=== PATIENT | female | born 1945 | race African-American/Black ===

== ENCOUNTER 2020-05-14 10:46 | Outpatient (CLI) | payer MEDICARE, SELFPAY ==
--- NOTE | ~2020-05-14 | XR_ITS ---
XR knee RT 3V DATE: 05/14/2020 11:36 INDICATION: Systemic lupus atheromatosis TECHNIQUE: [place], AP and lateral views COMPARISON: None FINDINGS: There is periarticular spurring at the patellofemoral joint consistent with osteoarthritis. Superior pole patellar enthesopathy at the quadriceps tendon insertion. Mild diffuse osteopenia. No fracture or dislocation, periosteal reaction or bone destruction. Medial and lateral compartment j oint spaces are relatively preserved. No radiopaque intra-articular loose body or chondrocalcinosis. No joint effusion is evident. IMPRESSION: Osteoarthritis at the patellofemoral joint Reviewed, dictated and finalized at location B. NT SUPPORT ANALYST
--- NOTE | ~2020-05-14 | DEXA_ITS ---
Bone Density Report Name: Linda Fong Age: 74 Sex: Female Ethnicity: Black Date of : 1945 Indication: postmenopausal; hysterectomy; Referring Provider: EVARISTO GUILLEN Study: Bone densitometry was performed. Exam Date: May 14, 2020 Accession number: [id number] Bone Density: Region BMD T-score Z-score Classification AP Spine (L1-L4) 0.958 -0.8 0.9 Normal Femoral Neck (Left) 0.748 -0.9 0.2 Normal Total Hip (Left) 0.887 -0.4 0.4 Normal Total Hip Bilateral Avg 0.862 -0.6 0.3 Normal Femoral Neck (Right) 0.766 -0.7 0.3 Normal Total Hip (Right) 0.835 -0.9 0.1 Normal World Health Organization criteria for BMD impression classify patients as: Normal (T-score at or above -1.0), Osteopenia (T-score between -1.0 and -2.5), or Osteoporosis (T-score at or below -2.5). 10-year Fracture Risk: FRAX not reported because: All T-scores for Spine Total, Hip Total, Femoral Neck at or above -1.0 Clinical Information Provided by Patient: Has used the following medications: Vitamin D Has the following medical conditions: Hysterectomy, lupus Patient maximum height was 64.5 Menopause Age: 51 Does not regularly consume dairy products Onset of menses at age 12 Number of children 3 Impression: The patient has normal bone mass. Discussion: BONE DENSITY IS ABOVE THE MINIMUM DESIRABLE LEVEL AT ALL SKELETAL SITES TESTED. This patient?s bone mineral density is above the minimum desirable level (T-score -1.0 or better) at all sites measured. The patient should follow a healthful lifestyle (good nutrition with adequate calcium and vitamin D, and appropriate weight-bearing exercise). Follow-Up: Consider repeating this study in 5 years or sooner if there is some new clinical indication. Reported by: LORENA on 05/14/2020 10:17:00 AM. Reviewed, dictated and finalized at location AAmparo SANDHU
--- NOTE | ~2020-05-14 | XR_ITS ---
XR hand BI arthritis min 3V DATE: 05/14/2020 11:36 INDICATION: Systemic lupus erythematosus TECHNIQUE: 4 views of each hand COMPARISON: None FINDINGS: Moderate osteopenia is suggested. Osteoarthritic changes noted at the distal interphalangeal joints bilaterally, particularly bilateral second and third digits and left fourth distal interphalangeal joint No fracture, dislocation, periosteal reaction or bone destruction or erosive change. Note tuft resorp tion or avascular necrosis or unusual soft tissue calcifications are noted. Normal scapholunate dista nces.. IMPRESSION: Moderate osteopenia and osteoarthritis Reviewed, dictated and finalized at location B. TS PHOTOGRAPHER
--- NOTE | ~2020-05-14 | XR_ITS ---
XR knee LT 3V DATE: 05/14/2020 11:36 INDICATION: Systemic lupus erythematosus TECHNIQUE: [place] and AP and lateral views COMPARISON: None FINDINGS: Mild diffuse osteopenia is suggested. There is prominent periarticular spurring at the [place] llofemoral joint. There is particular spurring at the medial compartment, but medial and lateral comp artment joint spaces are relatively preserved. No fracture or dislocation or joint effusion. No periosteal reaction or bone destruction. No radiopaq ue intra-articular loose body or chondrocalcinosis is evident. IMPRESSION: Osteoarthritis involving the patellofemoral medial compartments Reviewed, dictated and finalized at location B. UNT RELATIONSHIP MANAGER
[2020-05-14 11:17] LABS: Basophils Percent Auto 0.6 % (0.2-1.2); Eosinophils Absolute Auto 0.1 K/mm3 (0-0.3); Eosinophils Percent Auto 1.6 % (0-4.4); Hematocrit 40.5 % (37.0-47.0); Hemoglobin 13.8 g/dL (12.0-15.0); Immature Granulocyte Absolute 0.01 K/mm3 (0.00-0.031); Immature Granulocyte Percent A 0.2 % (0-0.5); Lymphocytes Absolute Auto 2.63 K/mm3 (0.9-3.2); Lymphocytes Percent Auto 54.2 % (18.3-44.2); Mean Corpuscular HGB Conc 34.1 g/dl (32-36); Mean Corpuscular Hemoglobin 29.4 pg (26-34); Mean Corpuscular Volume 86.4 fl (80-100); Mean Platelet Volume 10.1 fl (7.4-10.4); Monocytes Absolute Auto 0.5 K/mm3 (0.1-0.6); Monocytes Percent Auto 10.5 % (2.6-8.5); Neutrophils Absolute Auto 1.6 K/mm3 (1.3-6.7); Neutrophils Percent Auto 32.9 % (45.5-73.1); Platelet Count Result 241 k/mm3 (150-375); Red Blood Count 4.69 M/mm3 (4.2-5.4); Red Cell Distribution Width 13.3 % (11.5-14.5); White Blood Count 4.9 K/mm3 (4.5-10.0)
[2020-05-14 11:22] LABS: Add Urine Microscopic? YES; Appearance Urine Clear (Clear); Bilirubin Urine Negative (Negative); Blood Urine Negative (Negative); Color Urine Yellow (Yellow); Glucose Urine UA Negative (Negative); Ketones Urine Negative (Negative); Leukocyte Esterase Ur 1+ LEU/UL (Negative); Mucus Urine Rare /lpf; Nitrate Urine Negative (Negative); Protein Urine Negative (Negative); RBC Urine 0-2 /hpf (0-2); Squamous Epithelial Cell Urine Moderate /hpf (Few); Urobilinogen Urine Negative mg/dL (<2.0); WBC Urine 0-3 /hpf
[2020-05-14 11:33] LABS: Alanine Aminotransferase 24 U/L (4-35); Albumin Level 4.5 g/dL (3.5-5.1); Alkaline Phosphatase 77 U/L (38-126); Anion Gap 9 mmol/L (8-16); Aspartate Amino Transferase 30 U/L (14-36); Bilirubin,Total 0.7 mg/dL (0.2-1.3); Blood Urea Nitrogen 10 mg/dL (7-17); CRP < 0.5 mg/dL (<1.0); Carbon Dioxide 24 mmol/L (22-30); Chloride 106 mmol/L (98-107); Estimated Glomerular Filt Rate > 60; Glucose 98 mg/dL (65-105); Potassium 4.1 mmol/L (3.4-5.0); Sodium 139 mmol/L (137-145)
[2020-05-14 11:39] LABS: Complement C3 143 mg/dL (88-165); Rheumatoid Factor < 8.6 IU/ML (<12)
[2020-05-14 11:49] LABS: Erythrocyte Sedimentation Rate 17 mm/hr (0-20)
[2020-05-14 12:21] LABS: Vitamin D 25 Hydroxy 49.3 ng/mL
[2020-05-16 02:30] LABS: Anti Cardio Antibody IgM <12 MPL (<=12); Anti Cardiolipin Antibody IgA <11 APL (<=11); Anti Cardiolipin Antibody IgG <14 GPL (<=14)
[2020-05-16 20:40] LABS: Lupus dRVVT 1:1 Mix Interpreta Not Indicated; Lupus dRVVT Screen 39 sec (<=45); PTT-LA Screen 33 sec (<=40)
[2020-05-17 08:02] LABS: SM Antibody <1.0
[2020-05-17 09:47] LABS: SS-A <1.0; SS-B <1.0
[2020-05-18 11:57] LABS: HLA B27 Negative (Negative)
[2020-05-19 21:27] LABS: Angiotensin Converting Enzyme 40 U/L (9-67)
[2020-05-20 22:11] LABS: Anti Cyclic Citrullinated Pept <16 Units (<20)
== END 2020-05-14 10:47 | disposition home or self-care (01) ==
PROVIDERS: PCP Family Medicine; Visit Provider Internal Medicine
DX: M81.0 Age-related osteoporosis without current pathological fracture (principal); M32.9 Systemic lupus erythematosus, unspecified; M47.816 Spondylosis without myelopathy or radiculopathy, lumbar region; M85.88 Other specified disorders of bone density and structure, other site; M19.041 Primary osteoarthritis, right hand; M19.042 Primary osteoarthritis, left hand; M85.841 Other specified disorders of bone density and structure, right hand; M85.842 Other specified disorders of bone density and structure, left hand; M17.0 Bilateral primary osteoarthritis of knee; Z78.0 Asymptomatic menopausal state
CPT/HCPCS: 36415; 73130; 73562; 77080; 80053; 81001; 82164; 82306; 85025; 85613; 85652; 85730; 86038; 86140; 86146; 86147; 86160; 86200; 86225; 86235; 86430; 86812

== ENCOUNTER 2021-08-31 11:18 | Outpatient (CLI) | payer MEDICARE, SELFPAY ==
[2021-08-31 12:09] LABS: Appearance Urine Clear (Clear); Bilirubin Urine Negative (Negative); Blood Urine Negative (Negative); Color Urine Yellow (Yellow); Glucose Urine UA Negative (Negative); Ketones Urine Negative (Negative); Leukocyte Esterase Ur 1+ LEU/UL (Negative); Nitrate Urine Negative (Negative); Protein Urine Negative (Negative); Urobilinogen Urine 0.2 mg/dL (<2.0)
[2021-08-31 12:24] LABS: Basophils Percent Auto 0.7 % (0.2-1.2); Eosinophils Absolute Auto 0.1 K/mm3 (0-0.3); Eosinophils Percent Auto 1.7 % (0-4.4); Hematocrit 40.6 % (37.0-47.0); Hemoglobin 13.5 g/dL (12.0-15.0); Immature Granulocyte Absolute 0.01 K/mm3 (0.00-0.031); Immature Granulocyte Percent A 0.2 % (0-0.5); Lymphocytes Absolute Auto 3.54 K/mm3 (0.9-3.2); Lymphocytes Percent Auto 59.2 % (18.3-44.2); Mean Corpuscular HGB Conc 33.3 g/dl (32-36); Mean Corpuscular Hemoglobin 29.5 pg (26-34); Mean Corpuscular Volume 88.6 fl (80-100); Mean Platelet Volume 10.9 fl (7.4-10.4); Monocytes Absolute Auto 0.6 K/mm3 (0.1-0.6); Monocytes Percent Auto 10.2 % (2.6-8.5); Neutrophils Absolute Auto 1.7 K/mm3 (1.3-6.7); Platelet Count Result 215 k/mm3 (150-375); Red Blood Count 4.58 M/mm3 (4.2-5.4); Red Cell Distribution Width 13.7 % (11.5-14.5)
[2021-08-31 12:26] LABS: Bacteria Urine Trace /hpf; Mucus Urine Rare /lpf; RBC Urine 0-2 /hpf (0-2); Squamous Epithelial Cell Urine Occasional /hpf (Few); WBC Urine 0-3 /hpf
[2021-08-31 12:27] LABS: Add Urine Microscopic? YES
[2021-08-31 12:37] LABS: Alanine Aminotransferase 27 U/L (6-35); Albumin Level 4.6 g/dL (3.5-5.1); Alkaline Phosphatase 77 U/L (38-126); Anion Gap 6 mmol/L (8-16); Aspartate Amino Transferase 31 U/L (14-36); Bilirubin,Total 0.6 mg/dL (0.2-1.3); Blood Urea Nitrogen 13 mg/dL (7-17); CRP < 0.5 mg/dL (<1.0); Calcium 10.1 mg/dL (8.4-10.2); Carbon Dioxide 23 mmol/L (22-30); Chloride 110 mmol/L (98-107); Estimated Glomerular Filt Rate 58; Glucose 95 mg/dL (65-110); Sodium 139 mmol/L (137-145)
[2021-08-31 12:40] LABS: Complement C3 134 mg/dL (88-165)
[2021-08-31 14:21] LABS: Erythrocyte Sedimentation Rate 16 mm/hr (0-20)
[2021-09-04 22:07] LABS: Hexagonal Phase Confirm Weak Positive (Negative)
[2021-09-04 22:39] LABS: Lupus dRVVT 1:1 Mix Interpreta Not Indicated; Lupus dRVVT Screen 42 sec (<=45); PTT-LA Screen 50 sec (<=40)
== END 2021-08-31 11:19 | disposition home or self-care (01) ==
PROVIDERS: PCP Family Medicine; Visit Provider Internal Medicine
DX: M32.9 Systemic lupus erythematosus, unspecified (principal); M19.90 Unspecified osteoarthritis, unspecified site
CPT/HCPCS: 36415; 80053; 81001; 85025; 85613; 85652; 85730; 86140; 86160

== ENCOUNTER 2023-05-23 11:33 | Outpatient (CLI) | payer MEDICARE, SELFPAY ==
[2023-05-23 12:15] LABS: Basophils Percent Auto 0.5 % (0.2-1.2); Eosinophils Absolute Auto 0.1 K/mm3 (0-0.3); Eosinophils Percent Auto 2.3 % (0-4.4); Hematocrit 42.4 % (37.0-47.0); Hemoglobin 13.6 g/dL (12.0-15.0); Immature Granulocyte Absolute 0.02 K/mm3 (0.00-0.031); Immature Granulocyte Percent A 0.3 % (0-0.5); Lymphocytes Absolute Auto 3.11 K/mm3 (0.9-3.2); Lymphocytes Percent Auto 51.8 % (18.3-44.2); Mean Corpuscular HGB Conc 32.1 g/dl (32-36); Mean Corpuscular Hemoglobin 28.8 pg (26-34); Mean Corpuscular Volume 89.8 fl (80-100); Mean Platelet Volume 10.6 fl (7.4-10.4); Monocytes Absolute Auto 0.7 K/mm3 (0.1-0.6); Monocytes Percent Auto 12.2 % (2.6-8.5); Neutrophils Percent Auto 32.9 % (45.5-73.1); Platelet Count Result 279 k/mm3 (150-375); Red Blood Count 4.72 M/mm3 (4.2-5.4); Red Cell Distribution Width 13.6 % (11.5-14.5)
[2023-05-23 12:32] LABS: Creatinine Urine 42.2 mg/dL; Total Protein Urine Random 18 mg/dL; Ur Ttl Prot Creatinine Ratio 0.43 mg/mg (0-0.20)
== END 2023-05-23 11:34 | disposition home or self-care (01) ==
PROVIDERS: PCP Family Medicine; Visit Provider Internal Medicine
DX: M32.9 Systemic lupus erythematosus, unspecified (principal); M19.90 Unspecified osteoarthritis, unspecified site
CPT/HCPCS: 36415; 82570; 84156; 85025

== ENCOUNTER 2023-05-24 08:44 | Outpatient (CLI) | payer MEDICARE, SELFPAY ==
[2023-05-24 09:47] LABS: Alanine Aminotransferase 21 U/L (6-35); Albumin Level 4.3 g/dL (3.5-5.1); Alkaline Phosphatase 80 U/L (38-126); Anion Gap 5 mmol/L (8-16); Aspartate Amino Transferase 29 U/L (14-36); Bilirubin,Total 0.7 mg/dL (0.2-1.3); Blood Urea Nitrogen 13 mg/dL (7-17); CRP < 0.5 mg/dL (<1.0); Calcium 10.2 mg/dL (8.4-10.2); Carbon Dioxide 29 mmol/L (22-30); Chloride 106 mmol/L (98-107); Estimated Glomerular Filt Rate > 60; Glucose 94 mg/dL (65-110); Potassium 3.9 mmol/L (3.4-5.0); Sodium 140 mmol/L (137-145)
== END 2023-05-24 08:45 | disposition home or self-care (01) ==
LOC: ANHLAB 08:45
PROVIDERS: PCP Family Medicine; Visit Provider Internal Medicine
DX: M19.90 Unspecified osteoarthritis, unspecified site (principal); M32.9 Systemic lupus erythematosus, unspecified
CPT/HCPCS: 36415; 80053; 86140